=== PATIENT | male | born 1940 | race Caucasian/White ===

== ENCOUNTER → 2017-01-04 | Outpatient (CLI) | payer MEDICARE, OTHER ==
[~2017-01-04] MED LIST: SIMV20 PO; TAB-TAB PO
[2017-01-04 10:06] LABS: ANION GAP 6 MEQ/L (5-15); AST (GOT) 64 U/L (15-37); BICARBONATE 27.2 MEQ/L (21.0-32.0); BLOOD UREA NITROGEN 17 MG/DL (7-18); CHLORIDE 101 MEQ/L (98-107); GLOMERULAR FILTRATION RATE 66 ML/MIN (>89); GLUCOSE,FASTING 105 MG/DL (74-99); POTASSIUM 4.1 MEQ/L (3.5-5.1); SODIUM (NA) 134 MEQ/L (136-145)
[2017-01-04 10:07] LABS: ALT (GPT) 49 U/L (12-78)
[2017-01-04 10:10] LABS: ALKALINE PHOSPHATASE 72 U/L (45-117); HDL CHOLESTEROL 68.9 MG/DL (40.0-60.0); LDL CHOLESTEROL 86 MG/DL (0-99); TOTAL BILIRUBIN ADULT 0.5 MG/DL (0.2-1.0)
[2017-01-04 15:32] LABS: HEMOGLOBIN A1a 1.2 %; HEMOGLOBIN A1b 0.9 %; HEMOGLOBIN Ao 84.8 %; HEMOGLOBIN F 0.9 %; HEMOGLOBIN LA1C 2.1 %; HEMOGLOBIN P3 3.7 %
== END ==
LOC: PLAB 07:08
PROVIDERS: ATTEND Family Medicine
DX: Z00.00 Encounter for general adult medical examination without abnormal findings (principal); I10 Essential (primary) hypertension; E78.2 Mixed hyperlipidemia; E83.119 Hemochromatosis, unspecified
CPT/HCPCS: 36415; 80053; 80061; 83036

== ENCOUNTER 2017-03-15 08:16 | Emergency (ER) | payer MEDICARE, OTHER ==
[~2017-03-15] VITALS: Ht 182.9 cm; Wt 104.7 kg
[2017-03-15 08:21] VITALS: BP 212/102; PULSE 83; RESP 16; TEMP 97.3; O2SAT 97
[2017-03-15] MEDS ORDERED: ASPI81TA23 PO (08:30)
[2017-03-15] MEDS ORDERED: SIMV20TA PO (08:30)
[2017-03-15] MEDS ORDERED: MULT-65 PO (08:30)
[2017-03-15] MEDS ORDERED: LOSA25TA PO (08:30)
[2017-03-15 08:54] VITALS: BP 184/94
--- NOTE | 2017-03-15 08:55 | PD ---
HPI Chief Complaint: Nosebleed Time Seen by Provider: 08:40 Travel History International Travel<30 days: No Contact w/Intl Traveler<30days: No Traveled to known affect area: No History of Present Illness HPI This patient complains of nosebleed. He takes a daily aspirin. He has no history of nosebleeds. He's had runny nose and congestion lately and has been doing a lot of nasal sprays. He blew his nose this morning and then had a bleed from his right nostril. After about 30 minutes he came to the ER. Symptoms severity is mild. No presyncopal symptoms. Duration 1 hour. No alleviating factors. Symptoms exacerbated by blowing his nose and aspirin PFSH Past Medical History Hx Anticoagulant Therapy: Yes (81mg asa daily) Cancer: No Cardiovascular Problems: Yes (htn on meds) High Cholesterol: Yes Diabetes: No Glaucoma: No Hepatitis: No Hiatal Hernia: No Hypertension: Yes Medical other: Yes (ELEVATED CHOLESTEROL) Respiratory: No Thyroid Disease: No Tetanus Vaccination: < 5 Years Influenza Vaccination: Yes Past Surgical History Abdominal Surgery: No Cardiac Surgery: No Ear Surgery: No Endocrine Surgery: No Eye Surgery: No Genitourinary Surgery: No Gynecologic Surgery: No Oral Surgery: Yes (TONSILLECTOMY) Pacemaker: No Thoracic Surgery: No Tonsillectomy: Yes Social History Alcohol Use: Yes (2 mix drinks a day) Tobacco Use: No (quit 40 yrs ago smoked 3 ppd) Substance Use: No Allergies-Medications (Allergen,Severity, Reaction): Coded Allergies: acetaminophen (Unverified Allergy, Intermediate, ITCHING, 03/15/17) oxycodone (Unverified Allergy, Intermediate, ITCHING, 03/15/17) Reported Meds & Prescriptions Reported Meds & Active Scripts Active Reported Aspirin EC (Aspirin) 81 Mg Tabdr 81 Mg PO DAILY Losartan (Losartan Potassium) 25 Mg Tab 25 Mg PO DAILY Multi-Vitamin Daily (Multiple Vitamin) 1 Tab Tab 1 Tab PO DAILY Simvastatin 20 Mg Tab 20 Mg PO DAILY Review of Systems General / Constitutional: No: Fever Eyes: No: Visual changes HENT: Positive: Rhinorrhea, Congestion, Nosebleed, No: Headaches Cardiovascular: No: Chest Pain or Discomfort Respiratory: No: Shortness of Breath Gastrointestinal: No: Abdominal Pain Genitourinary: No: Dysuria Musculoskeletal: No: Pain Skin: No Rash Neurologic: No: Weakness Psychiatric: No: Depression Endocrine: No: Polydipsia Hematologic/Lymphatic: No: Easy Bruising Physical Exam Narrative GENERAL: Well-nourished, well-developed patient in no apparent distress. SKIN: Focused skin assessment reveals no rash and nodules. Skin is Warm and dry. HEAD: Atraumatic. Normocephalic. EYES: Pupils equal and round. No scleral icterus. No injection or drainage. ENT: No nasal discharge. Mucous membranes pink and moist. No blood in the left nostril. Has very scant ooze of blood in the right nostril without active hemorrhage NECK: Trachea midline. No JVD. CARDIOVASCULAR: Regular rate and rhythm. No murmur appreciated. RESPIRATORY: No accessory muscle use. Clear to auscultation. Breath sounds equal bilaterally. GASTROINTESTINAL: Abdomen soft, non-tender, nondistended. Hepatic and splenic margins not palpable. MUSCULOSKELETAL: No obvious deformities. No clubbing. No cyanosis. No edema. NEUROLOGICAL: Awake and alert. No obvious cranial nerve deficits. Motor grossly within normal limits. Normal speech. PSYCHIATRIC: Appropriate mood and affect; insight and judgment normal. Data Data Last Documented VS Vital Signs Date Time Temp Pulse Resp B/P (MAP) Pulse Ox O2 Delivery O2 Flow Rate FiO2 03/15/17 08:54 184/94 (124) 03/15/17 08:31 16 03/15/17 08:21 97.3 83 97 Orders Orders Silver Nitrate Applicators (Silver Nitra (03/15/17 09:00) Clonidine (Catapres) (03/15/17 09:15) [facility] Medical Decision Making Medical Screen Exam Complete: Yes Emergency Medical Condition: Yes Medical Record Reviewed: Yes Differential Diagnosis Epistaxis, anticoagulation, nasal trauma Narrative Course I have reviewed the patient's electronic medical record. Patient arrived with accelerated hypertension. On recheck it is 190 systolic Procedure note: We discussed options and he gives verbal consent for silver nitrate cautery I used 5 silver nitrate sticks to cauterize the right anterior nostril. Beyond sneezing a couple of times he tolerated it well I observed him for a while afterwards and there is no further bleeding I gave him a dose of clonidine. He is advised to check and record his blood pressure daily. He forgot to take his medication this morning We discussed holding his aspirin. Diagnosis Primary Impression: Acute anterior epistaxis Additional Impression: Accelerated hypertension Additional Instructions: The patient was advised to follow up with their physician and return if they worsen. Check and record blood pressure daily Med/Other Pt SpecificInfo: Other Disposition: 01 DISCHARGE HOME Condition: Stable Prashant Bermudez MD Mar 15, 2017 08:55
[2017-03-15] MEDS ORDERED: SILVER NITR/POTASSIUM NITRATE APPLICATORS TOPICAL ONE (09:00)
[2017-03-15] MEDS ORDERED: cloNIDine HCL 0.2 MG TAB PO ONE (09:15)
== END 2017-03-15 09:38 | disposition home or self-care (01) ==
LOC: PHED 08:16
DX: R04.0 Epistaxis (principal); I10 Essential (primary) hypertension; E78.00 Pure hypercholesterolemia, unspecified; Z87.891 Personal history of nicotine dependence
CPT/HCPCS: 30901

== ENCOUNTER 2017-03-16 07:22 | Emergency (ER) | payer MEDICARE, OTHER ==
[~2017-03-16] VITALS: Ht 182.9 cm; Wt 105.8 kg
[~2017-03-16 07:22] MED LIST changes: +ASPI81TA23 PO; +LOSA25TA PO; +MULT-65 PO; -SIMV20 PO; +SIMV20TA PO; -TAB-TAB PO
[2017-03-16 07:29] VITALS: BP 196/97; PULSE 82; RESP 18; TEMP 98.2; O2SAT 96
[2017-03-16] MEDS ORDERED: OXYMETAZOLINE HCL 0.05% 15 ML NASAL SPRAY NASAL ONE (07:30)
[2017-03-16 07:49] LABS: AUTOMATED NEUTROPHIL # 4.6 TH/MM3 (1.8-7.7); BASOPHIL % 0.5 % (0.0-2.0); EOSINOPHIL # 0.2 TH/MM3 (0-0.4); EOSINOPHIL % 3.2 % (0.0-4.0); HEMATOCRIT 45.3 % (39.0-51.0); HEMO FLAGS DIFF FINAL; LYMPH % 30.2 % (9.0-44.0); LYMPHOCYTE # 2.3 TH/MM3 (1.0-4.8); MEAN CELL VOLUME 94.3 FL (80.0-100.0); MEAN CORPUSCULAR HEMOGLOBIN 29.9 PG (27.0-34.0); MEAN CORPUSCULAR HGB CONC 31.8 % (32.0-36.0); MONO % 7.9 % (0.0-8.0); NEUT % 58.2 % (16.0-70.0); PLATELET COUNT 344 TH/MM3 (150-450); RED CELL DISTRIBUTION WIDTH 12.6 % (11.6-17.2); WHITE BLOOD COUNT 7.7 TH/MM3 (4.0-11.0)
--- NOTE | 2017-03-16 07:51 | PD ---
HPI Chief Complaint: Nosebleed Time Seen by Provider: 07:30 Travel History International Travel<30 days: No Contact w/Intl Traveler<30days: No Traveled to known affect area: No History of Present Illness HPI Patient is a 76 year old male who comes in complaining of a nosebleed. He was here yesterday for the same thing. He says the vessel was cauterized yesterday. He says he was taking a shower today and he tried to get the water out of his nose when it started bleeding again. He denies any trauma to his nose. He denies any other symptoms. He is on Aspirin, but says he did not take it yesterday. PFSH Past Medical History Hx Anticoagulant Therapy: Yes (81mg asa daily) Cancer: No Cardiovascular Problems: Yes (htn) High Cholesterol: Yes Diabetes: No Glaucoma: No Hepatitis: No Hiatal Hernia: No Hypertension: Yes Medical other: Yes (ELEVATED CHOLESTEROL) Respiratory: No Thyroid Disease: No Past Surgical History Abdominal Surgery: No Cardiac Surgery: No Ear Surgery: No Endocrine Surgery: No Eye Surgery: No Genitourinary Surgery: No Gynecologic Surgery: No Neurologic Surgery: No Oral Surgery: Yes (TONSILLECTOMY) Pacemaker: No Thoracic Surgery: No Tonsillectomy: Yes Other Surgery: Yes Social History Alcohol Use: Yes (2 mix drinks a day) Tobacco Use: No (quit 40 yrs ago smoked 3 ppd) Substance Use: No Allergies-Medications (Allergen,Severity, Reaction): Coded Allergies: acetaminophen (Unverified Allergy, Intermediate, ITCHING, 03/16/17) oxycodone (Unverified Allergy, Intermediate, ITCHING, 03/16/17) Reported Meds & Prescriptions Reported Meds & Active Scripts Active Reported Aspirin EC (Aspirin) 81 Mg Tabdr 81 Mg PO DAILY Losartan (Losartan Potassium) 25 Mg Tab 25 Mg PO DAILY Multi-Vitamin Daily (Multiple Vitamin) 1 Tab Tab 1 Tab PO DAILY Simvastatin 20 Mg Tab 20 Mg PO DAILY Review of Systems General / Constitutional: No: Fever, Chills HENT: Positive: Nosebleed, No: Headaches, Lightheadedness Respiratory: No: Shortness of Breath Gastrointestinal: No: Nausea, Vomiting Skin: No Rash, No Change in Pigmentation Neurologic: No: Weakness, Dizziness Physical Exam Narrative GENERAL: Awake and alert, in no acute distress. SKIN: Focused skin assessment warm/dry. HEAD: Atraumatic. Normocephalic. EYES: Pupils equal and round. No scleral icterus. No conjunctival pallor. ENT: Slow oozing of blood from right nostril. No septal hematoma. CARDIOVASCULAR: Regular rate and rhythm. No murmur appreciated. RESPIRATORY: No accessory muscle use. Clear to auscultation. Breath sounds equal bilaterally. MUSCULOSKELETAL: No obvious deformities. No clubbing. No cyanosis. No edema. NEUROLOGICAL: Awake and alert. No obvious cranial nerve deficits. Motor grossly within normal limits. Normal speech. Data Data Last Documented VS Vital Signs Date Time Temp Pulse Resp B/P (MAP) Pulse Ox O2 Delivery O2 Flow Rate FiO2 03/16/17 08:04 76 18 176/90 (118) 96 Room Air 03/16/17 07:29 98.2 Orders Orders Oxymetazoline 0.05% Rafael Crittenden (Afrin 0.0 (03/16/17 07:30) Complete Blood Count With Diff (03/16/17 07:30) Labs Laboratory Tests Test 03/16/17 07:40 White Blood Count 7.7 TH/MM3 Red Blood Count 4.80 MIL/MM3 Hemoglobin 14.4 GM/DL Hematocrit 45.3 % Mean Corpuscular Volume 94.3 FL Mean Corpuscular Hemoglobin 29.9 PG Mean Corpuscular Hemoglobin Concent 31.8 % Red Cell Distribution Width 12.6 % Platelet Count 344 TH/MM3 Mean Platelet Volume 7.2 FL Neutrophils (%) (Auto) 58.2 % Lymphocytes (%) (Auto) 30.2 % Monocytes (%) (Auto) 7.9 % Eosinophils (%) (Auto) 3.2 % Basophils (%) (Auto) 0.5 % Neutrophils # (Auto) 4.6 TH/MM3 Lymphocytes # (Auto) 2.3 TH/MM3 Monocytes # (Auto) 0.6 TH/MM3 Eosinophils # (Auto) 0.2 TH/MM3 Basophils # (Auto) 0.0 TH/MM3 CBC Comment DIFF FINAL Differential Comment MDM Medical Decision Making Medical Screen Exam Complete: Yes Emergency Medical Condition: Yes Medical Record Reviewed: Yes Differential Diagnosis nosebleed vs anemia vs thrombocytopenia Narrative Course Patient is a 76 year old male who comes in complaining of a nosebleed. Exam shows slow oozing of blood from right nostril. Patient given Afrin and observed in the ED. Advised to use a humidifier and to avoid blowing his nose as the blood vessels heal. Advised if the bleeding occurs again to hold pressure. Advised to return to the ED as needed for any worsening symptoms. Diagnosis Primary Impression: Nosebleed Patient Instructions: General Instructions, Nosebleed (ED) Additional Instructions: Avoid blowing your nose. If the bleeding recurs, hold pressure and apply ice. Return as needed for any worsening symptoms. Disposition: 01 DISCHARGE HOME Condition: Stable Ivette Ward MD Mar 16, 2017 07:51
[2017-03-16 08:04] VITALS: BP 176/90; PULSE 76; RESP 18; O2SAT 96
== END 2017-03-16 08:45 | disposition home or self-care (01) ==
LOC: PHED 07:22
DX: R04.0 Epistaxis (principal); I10 Essential (primary) hypertension; E78.00 Pure hypercholesterolemia, unspecified; Z87.891 Personal history of nicotine dependence; Z79.82 Long term (current) use of aspirin; Z72.89 Other problems related to lifestyle
CPT/HCPCS: 85025; 99283